=== PATIENT | male | born 1990 | race Caucasian/White ===

== ENCOUNTER 2020-11-03 08:54 | Emergency (ER) | payer BC, OTHER ==
--- OUTSIDE RECORDS SUMMARY | 2020-11-03 08:56 | XMS REPORT | Continuity of Care Document ---
:1990 Author Organization [facility] t Address [address] [place] [address] Care Team Providers Name Role Phone Unavailable Unavailable Unavailable Payers Payer Name Policy Type Policy Number Effective Date Expiration Date S ource Problems This patient has no known problems. Allergies, Adverse Reactions, Alerts Allergy Allergy Status Severity Reaction(s) Onset Inactive Treating Comm ents Source Name Type Date Date Clinician No Known DA Active U 2017- [facility] [place] [facility] 00[facility]: [facility] Medications This patient has no known medications. Procedures This patient has no known procedures. Results This patient has no known results.
[2020-11-03] MEDS ORDERED: TETANUS & DIPHTHERIA TOX,ADULT 0.5 ML VIAL ONE (09:42)
--- NOTE | 2020-11-03 09:57 | RAD REPORT ---
EXAM DESCRIPTION: CT - CTHCSPWOC - 11/03/2020 9:48 am CLINICAL HISTORY: Trauma COMPARISON: None. TECHNIQUE: Axial 5 mm thick images of the head were obtained. Axial 2 mm thick images of the cervica l spine were obtained with sagittal and coronal reconstruction images generated and reviewed. All CT scans are performed using dose optimization technique as appropriate and may include automated exposure control or mA/KV adjustment according to patient size. FINDINGS: Cervical body height and alignment are normal. No disk space narrowing. No fracture or acu te bony abnormality. No paraspinal mass or hematoma. IMPRESSION: Negative CT head examination. Negative CT cervical spine examination.
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
[2020-11-03] MEDS ORDERED: AMOX/K CLAV 875 MG TAB ONE (10:41)
[2020-11-03 10:59] VITALS: BP 134/77; TEMP 98.6; O2SAT 98
== END 2020-11-03 10:43 | disposition home or self-care (01) ==
LOC: ER 08:54
DX: S16.1XXA Strain of muscle, fascia and tendon at neck level, initial encounter (principal); S00.83XA Contusion of other part of head, initial encounter; Y04.1XXA Assault by human bite, initial encounter; Y92.89 Other specified places as the place of occurrence of the external cause; Z23 Encounter for immunization; E10.9 Type 1 diabetes mellitus without complications; Z79.4 Long term (current) use of insulin
CPT/HCPCS: 70450; 72125; 90471; 90714; 99284